=== PATIENT | male | born 1960 | race African-American/Black ===

== ENCOUNTER 2017-06-25 04:05 | Emergency (ER) | payer OTHER ==
[~2017-06-25] VITALS: Ht 182.9 cm; Wt 102.1 kg
--- NOTE | 2017-06-25 04:58 | PHYS DOC ---
Past Medical History Past Medical History: High Cholesterol Past Surgical History: No Surgical History Alcohol Use: None Drug Use: None Adult General Chief Complaint Chief Complaint: ABDOMINAL PAIN HPI HPI Patient is a 57 year old male who presents with complaint of right upper quadrant abdominal pain. Patient states that his symptoms started approximate 6 hours ago and have been constant. Patient rates his pain currently as 5 out of 10. Patient states that he has had similar symptoms over the past year that are usually affected by eating. Patient states that he was diagnosed with gastritis proximally one year ago. Patient is not currently on any medications for treatment. The patient states that he does not remember having an ultrasound to check for gallbladder disease as part of his workup. Patient denies any nausea or other symptoms currently. Patient has not taken any medication to help with symptoms. Due to worsening persistent symptoms the patient came into the emergency department for further evaluation. Review of Systems Review of Systems Constitutional: Denies fever or chills [] Eyes: Denies change in visual acuity, redness, or eye pain [] HENT: Denies nasal congestion or sore throat [] Respiratory: Denies cough or shortness of breath [] Cardiovascular: Denies chest pain or edema[] GI: Right upper quadrant abdominal pain, denies nausea, vomiting, bloody stools or diarrhea [] : Denies dysuria or hematuria [] Musculoskeletal: Denies back pain or joint pain [] Integument: Denies rash or skin lesions [] Neurologic: Denies headache, focal weakness or sensory changes [] Current Medications Current Medications Current Medications Medications (Trade) Dose Ordered Sig/Jordon Start Time Stop Time Status Last Admin Dose Admin Multi-Ingredient Mouthwash/Gargle (Gi Cocktail Single Dose) 15 ml 1X ONCE 06/25/17 05:15 06/25/17 05:16 DC 06/25/17 05:04 15 ML Sodium Chloride 1,000 ml @ 1,000 mls/hr Q1H 06/25/17 05:15 06/25/17 06:14 DC 06/25/17 05:05 1,000 MLS/HR Allergies Allergies Allergies Coded Allergies Type Severity Reaction Last Updated Verified No Known Drug Allergies 06/25/17 No Physical Exam Physical Exam Constitutional: Alert, afebrile, appears in mild discomfort. [] HENT: Normocephalic, atraumatic, bilateral external ears normal, oropharynx moist, no oral exudates, nose normal. [] Eyes: PERRLA, EOMI, conjunctiva normal, no discharge. [] Neck: Normal range of motion, no tenderness, supple, no stridor. [] Cardiovascular:Heart rate regular rhythm, no murmur [] Lungs & Thorax: Bilateral breath sounds clear to auscultation [] Abdomen: Bowel sounds normal, soft, right upper quadrant and epigastric tenderness to palpation with mild guarding, no rebound tenderness, no masses, no pulsatile masses. [] Skin: Warm, dry, no erythema, no rash. [] Back: No tenderness, no CVA tenderness. [] Extremities: No tenderness, no cyanosis, no clubbing, ROM intact, no edema. [] Neurologic: Alert and oriented X 3, normal motor function, normal sensory function, no focal deficits noted. [] Current Patient Data Vital Signs Vital Signs Date Time Temp Pulse Resp B/P (MAP) Pulse Ox O2 Delivery O2 Flow Rate FiO2 06/25/17 06:00 54 18 145/82 (103) 97 Room Air 06/25/17 04:25 98.1 98.1 Lab Values Laboratory Tests Test 06/25/17 04:18 06/25/17 05:10 White Blood Count 10.5 x10^3/uL (4.0-11.0) Red Blood Count 5.77 x10^6/uL (4.30-5.70) H Hemoglobin 13.4 g/dL (13.0-17.5) Hematocrit 42.8 % (39.0-53.0) Mean Corpuscular Volume 74 fL (79-100) L Mean Corpuscular Hemoglobin 23 pg (25-35) L Mean Corpuscular Hemoglobin Concent 31 g/dL (31-37) Red Cell Distribution Width 14.4 % (11.5-14.5) Platelet Count 225 x10^3/uL (140-400) Neutrophils (%) (Auto) 57 % (31-73) Lymphocytes (%) (Auto) 28 % (24-48) Monocytes (%) (Auto) 13 % (0-9) H Eosinophils (%) (Auto) 2 % (0-3) Basophils (%) (Auto) 1 % (0-3) Neutrophils # (Auto) 6.0 x10^3uL (1.8-7.7) Lymphocytes # (Auto) 2.9 x10^3/uL (1.0-4.8) Monocytes # (Auto) 1.4 x10^3/uL (0.0-1.1) H Eosinophils # (Auto) 0.2 x10^3/uL (0.0-0.7) Basophils # (Auto) 0.1 x10^3/uL (0.0-0.2) Urine Collection Type Unknown Urine Color Yellow Urine Clarity Clear Urine pH 6.5 Urine Specific [place] <=1.005 Urine Protein Negative mg/dL (NEG-TRACE) Urine Glucose (UA) Negative mg/dL (NEG) Urine Ketones (Stick) Negative mg/dL (NEG) Urine Blood Negative (NEG) Urine Nitrite Negative (NEG) Urine Bilirubin Negative (NEG) Urine Urobilinogen Dipstick 0.2 mg/dL (0.2 mg/dL) Urine Leukocyte Esterase Negative (NEG) Urine RBC 0 /HPF (0-2) Urine WBC 0 /HPF (0-4) Urine Squamous Epithelial Cells None /LPF Urine Bacteria 0 /HPF (0-FEW) Sodium Level 138 mmol/L (136-145) Potassium Level 3.6 mmol/L (3.5-5.1) Chloride Level 101 mmol/L (98-107) Carbon Dioxide Level 27 mmol/L (21-32) Anion Gap 10 (6-14) Blood Urea Nitrogen 14 mg/dL (8-26) Creatinine 1.5 mg/dL (0.7-1.3) H Estimated GFR (Cockcroft-Gault) 58.6 BUN/Creatinine Ratio 9 (6-20) Glucose Level 120 mg/dL (70-99) H Calcium Level 9.0 mg/dL (8.5-10.1) Total Bilirubin 0.3 mg/dL (0.2-1.0) Aspartate Amino Transferase (AST) 33 U/L (15-37) Alanine Aminotransferase (ALT) 48 U/L (16-63) Alkaline Phosphatase 124 U/L (46-116) H Total Protein 7.6 g/dL (6.4-8.2) Albumin 4.1 g/dL (3.4-5.0) Albumin/Globulin Ratio 1.2 (1.0-1.7) Lipase 119 U/L (73-393) POC Troponin I 0.00 ng/ml (<0.08) Laboratory Tests 06/25/17 04:18 Laboratory Tests 06/25/17 04:18 EKG EKG Interpreted by me: Heart rate 56, sinus rhythm, normal intervals, normal axis, nonspecific ST elevation in V3, no acute T-wave changes or reciprocal ST changes [] Radiology/Procedures Radiology/Procedures [address] [place] [address] IMAGING REPORT Signed PATIENT: EDWINA MEDINA ACCOUNT: [id number] : 1960 LOCATION: ER AGE: 57 SEX: M EXAM STATUS: REG ER ORD. PHYSICIAN: IGOR BECKWITH MD REASON: right upper quadrant pain PROCEDURE: ABDOMEN LTD INDICATION : ruq pain 2 hrs post prandial x 9hrs
intermittent x 1 yr COMPARISON: None TECHNIQUE: Multiple ultrasound images obtained through the abdomen in grayscale and color. FINDINGS: Liver: Echotexture within normal limits in visualized portions of liver. Gallbladder: Partially contracted without definite stones. IVC: Partially distended at level of liver. Common Bile Duct: Not well seen but no definite dilatation of bile ducts seen on this exam. Pancreas: Not well seen Right Kidney: No hydronephrosis. IMPRESSION: 1. Gallbladder is partially contracted without definite gallstones. Electronically signed by: Isis Gomez MD (06/25/2017 6:07 AM) [facility] DICTATED and SIGNED BY: ISIS GOMEZ MD DATE: 06/25/17 0604 CC: IGOR BECKWITH MD; NO PCP ~ [] Course & Med Decision Making Course & Med Decision Making Pertinent Labs and Imaging studies reviewed. (See chart for details) Patient was given IV fluids and GI cocktail in the emergency department. The patient's EKG showed elevation in lead V3. I consulted Dr. Dalal who reviewed the EKG and stated that the EKG did not show any signs of acute STEMI. The patient denies any associated chest pain at this time with his symptoms. Due to prolonged symptoms of greater than 6 hours, the patient had one troponin level obtained from the emergency department at the six-hour igor which showed no elevation in the troponin. The patient is feeling better at this time. The patient states that he would like to go home. The patient is not on any stomach acid limiting medication at this time. The patient will be started on Pepcid twice daily and recommended to follow-up with the patient's primary doctor in the next 3-5 days for reevaluation. Advised return emergency department for any worsening symptoms. Patient voiced understanding and in agreement with treatment plan. Dragon Disclaimer Dragon Disclaimer This electronic medical record was generated, in whole or in part, using a voice recognition dictation system. Departure Departure Impression: Primary Impression: Abdominal pain Disposition: HOME, SELF-CARE Condition: IMPROVED Patient Instructions: Abdominal Pain (Nonspecific) Additional Instructions: Follow-up with your primary doctor in 3-5 days for reevaluation. Return to emergency department for any worsening symptoms. Scripts Famotidine (PEPCID) 20 Mg Tablet 20 MG PO BID, #30 TAB Prov: IGOR BECKWITH MD 06/25/17 Problem Qualifiers Primary Impression: Abdominal pain Abdominal location: right upper quadrant Qualified Codes: R10.11 - Right upper quadrant pain IGOR BECKWITH MD Jun 25, 2017 04:58
[2017-06-25 05:07] LABS: BASO # 0.1 x10^3/uL (0.0-0.2); BASO % 1 % (0-3); EOS % 2 % (0-3); HEMATOCRIT 42.8 % (39.0-53.0); HEMOGLOBIN 13.4 g/dL (13.0-17.5); LYMPH # 2.9 x10^3/uL (1.0-4.8); LYMPH % 28 % (24-48); MEAN CORPUSCULAR HEMOGLOBIN 23 pg (25-35); MEAN CORPUSCULAR HGB CONC 31 g/dL (31-37); MEAN CORPUSCULAR VOLUME 74 fL (79-100); MONO % 13 % (0-9); NEUT % 57 % (31-73); PLATELET COUNT 225 x10^3/uL (140-400); RED BLOOD COUNT 5.77 x10^6/uL (4.30-5.70); RED CELL DISTRIBUTION WIDTH 14.4 % (11.5-14.5); WHITE BLOOD COUNT 10.5 x10^3/uL (4.0-11.0)
[2017-06-25 05:08] LABS: BILIRUBIN,URINE NEGATIVE (NEG); GLUCOSE,URINE NEGATIVE (NEG); NITRITE,URINE NEGATIVE (NEG); PH,URINE 6.5; PROTEIN,URINE NEGATIVE (NEG-TRACE); UROBILINOGEN,URINE 0.2 mg/dL (0.2 mg/dL)
[2017-06-25] MEDS ORDERED: LIDO:MAALOX:DONNATAL 1:1:1 15 ML SINGLE DOSE SWSW ONE (05:15)
[2017-06-25] MEDS ORDERED: IV NORMAL SALINE 1000ML BAG 1,000 ML IV SCH (05:15)
[2017-06-25 05:25] LABS: BACTERIA,URINE 0 /HPF (0-FEW); RBC,URINE 0 /HPF (0-2); WBC,URINE 0 /HPF (0-4)
[2017-06-25 05:36] LABS: CREATININE 1.5 mg/dL (0.7-1.3); GFR 58.6; POTASSIUM 3.6 mmol/L (3.5-5.1)
[2017-06-25 05:42] LABS: ALBUMIN 4.1 g/dL (3.4-5.0); ALBUMIN/GLOBULIN RATIO 1.2 (1.0-1.7); TOTAL BILIRUBIN 0.3 mg/dL (0.2-1.0); TOTAL PROTEIN 7.6 g/dL (6.4-8.2)
[2017-06-25 06:00] VITALS: BP 145/82
--- NOTE | 2017-06-25 06:10 | RAD ---
INDICATION : ruq pain 2 hrs post prandial x 9hrs
intermittent x 1 yr COMPARISON: None TECHNIQUE: Multiple ultrasound images obtained through the abdomen in grayscale and color. FINDINGS: Liver: Echotexture within normal limits in visualized portions of liver. Gallbladder: Partially contracted without definite stones. IVC: Partially distended at level of liver. Common Bile Duct: Not well seen but no definite dilatation of bile ducts seen on this exam. Pancreas: Not well seen Right Kidney: No hydronephrosis. IMPRESSION: 1. Gallbladder is partially contracted without definite gallstones. Electronically signed by: Erasmo Leslie MD (06/25/2017 6:07 AM) [facility]
[2017-06-25] MEDS ORDERED: FAMO-63 PO (06:24)
--- NOTE | 2017-06-25 11:17 | EKG ---
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
--- NOTE | 2017-06-25 11:27 | EKG ---
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
== END 2017-06-25 06:35 | disposition home or self-care (01) ==
LOC: ER 05:15
DX: R10.11 Right upper quadrant pain (principal); R10.13 Epigastric pain; E78.00 Pure hypercholesterolemia, unspecified
CPT/HCPCS: 36415; 76705; 80053; 81001; 83690; 84484; 85025; 93005; 96360; 99285; J7030